=== PATIENT | female | born 1970 | race Caucasian/White ===

== ENCOUNTER 2016-11-02 22:04 | Emergency (ER) | payer SELFPAY ==
[~2016-11-02] VITALS: Ht 167.6 cm; Wt 95.0 kg
[2016-11-02 22:08] VITALS: BP 128/82
== END 2016-11-03 02:15 | disposition left against medical advice (07) ==
LOC: ER 22:04
DX: Z53.21 Procedure and treatment not carried out due to patient leaving prior to being seen by health care provider (principal)